=== PATIENT | female | born 1995 | race Caucasian/White ===

== ENCOUNTER 2018-09-17 19:12 | Emergency (ER) | payer OTHER ==
[2018-09-17 20:46] LABS: APPEARANCE,URINE SLIGHTLY-CLOUDY; BILIRUBIN,URINE NEGATIVE (NEGATIVE); COLOR,URINE YELLOW; GLUCOSE, URINE NEGATIVE (NEGATIVE); KETONES,URINE TRACE mg/dL (NEGATIVE); LEUKOCYTE ESTERASE,URINE SMALL (NEGATIVE); NITRITE,URINE NEGATIVE (NEGATIVE); PROTEIN,URINE NEGATIVE (NEGATIVE)
[2018-09-17 21:31] LABS: ABSOLUTE LYMPHOCYTES (AUTO) 0.7 10^3/uL (0.5-4.7); ABSOLUTE MONOCYTES (AUTO) 0.5 10^3/uL (0.1-1.4); BASOPHILS % (AUTO) 0.3 % (0-2); EOSINOPHILS % (AUTO) 1.1 % (0-6); HEMATOCRIT 37.1 % (36.0-47.0); LYMPHOCYTES % (AUTO) 17.6 % (13-45); MEAN CORPUSCULAR HEMOGLOBIN 32.5 pg (27.0-33.4); MEAN CORPUSCULAR HGB CONC 35.2 g/dL (32.0-36.0); MEAN CORPUSCULAR VOLUME 93 fl (80-97); PLATELET COUNT 152 10^3/uL (150-450); RED BLOOD COUNT 4.01 10^6/uL (3.72-5.28); RED CELL DISTRIBUTION WIDTH 13.4 % (11.5-14.0); TOTAL CELLS COUNTED % (AUTO) 100 %; WHITE BLOOD COUNT 4.2 10^3/uL (4.0-10.5)
--- NOTE | 2018-09-17 21:53 | ER Document Report ---
ED General - General Chief Complaint: Passed Out Prior to Arrival Stated Complaint: FAINTED AT WORK Time Seen by Provider: 09/17/18 21:52 Mode of Arrival: Ambulatory Information source: Patient, Relative TRAVEL OUTSIDE OF THE [place] IN LAST 30 DAYS: No - HPI Notes: Patient presents with her as a 23-year-old with history of lupus and is currently 11 weeks and 5 days comes in with report of episode of syncope at work that occurred where she had midepigastric abdominal pain and then nausea then felt lightheaded and was diaphoretic but stayed in a upright position in a chair and then had a syncopal event. The patient had no seizure activity or incontinence or tongue biting. She had another event 1 week ago. She reports some nausea associated with but has not vomited today. No constipation or diarrhea or chest pain or palpitations or headache or head injury. No unilateral motor or sensory deficit. Medications patient previously was on Plaquenil but it was discontinued. She is on as a azithioprin, hydroxyzine, Unisom, vitamins, Zofran. Patient has had a previous ultrasound showed an intrauterine . She currently denies any abdominal pain states she feels better. She admits to drinking less fluids and eating less related to nausea from the . She has had other episodes of feeling lightheaded and having syncope, commonly after a painful or stressful stimulus. - Related Data Allergies/Adverse Reactions: ibuprofen Allergy (Verified 09/17/18 19:18) Past Medical History - General Information source: Patient - Social History Smoking Status: Never Smoker Frequency of alcohol use: None Drug Abuse: None Lives with: Family Family History: None Patient has suicidal ideation: No Patient has homicidal ideation: No Renal/ Medical History: Denies: Hx Peritoneal Dialysis Review of Systems - Review of Systems -: Yes All other systems reviewed and negative Physical Exam - Vital signs Vitals: Temp Pulse Resp BP Pulse Ox 98.9 F 67 18 121/72 100 09/17/18 19:59 09/17/18 19:59 09/17/18 19:59 09/17/18 19:59 09/17/18 19:59 - Notes Notes: PHYSICAL EXAMINATION: GENERAL: Well-appearing, well-nourished and in no acute distress. HEAD: Atraumatic, normocephalic. EYES: Pupils equal round and reactive to light, extraocular movements intact, conjunctiva are normal. ENT: Nares patent, oropharynx clear without exudates. Moist mucous membranes. NECK: Normal range of motion, supple without lymphadenopathy LUNGS: Breath sounds clear to auscultation bilaterally and equal. No wheezes rales or rhonchi. HEART: Regular rate and rhythm without murmurs ABDOMEN: Soft, nontender, nondistended abdomen. No guarding, no rebound. No masses appreciated. Unable to reproduce any abdominal pain. Negative Hwang's. Female : deferred Musculoskeletal: Normal range of motion, no pitting or edema. No cyanosis. NEUROLOGICAL: Cranial nerves grossly intact. Normal speech, normal gait. Normal sensory, motor exams. No cerebellar ataxia. PSYCH: Normal mood, normal affect. SKIN: Warm, Dry, normal turgor, no rashes or lesions noted. Course - Re-evaluation Re-evalutation: 09/17/18 22:22 Patient given normal saline 1 L bolus. Orthostatics were normal on the patient. 09/18/18 00:12 Patient later complained of ear pain. She was noted to have cerumen impaction right greater than left. No evidence for mastoid tenderness. No evidence for otitis externa. The patient reportedly has been at the [facility] and had her ears irrigated and was given some drops previously for the same issue. No evidence for mastoiditis. Repeat blood sugar check was 118. No evidence for severe dehydration or suggestion for pyelonephritis or anemia or GI bleed or electrolyte imbalance or renal insufficiency or diabetes. The patient ate without difficulty while in the emergency department. No clinical suggestion for CVA or stroke. Question of vasovagal etiology. - Vital Signs Vital signs: Temp Pulse Resp BP Pulse Ox 98.9 F 70 20 122/65 100 09/17/18 19:59 09/17/18 20:51 09/17/18 23:12 09/17/18 23:12 09/17/18 23:12 - Laboratory Result Diagrams: 09/17/18 21:11 09/17/18 21:42 Laboratory results interpreted by me: 09/17/18 09/17/18 20:25 21:42 Potassium 3.5 L BUN 6 L Creatinine 0.38 L Glucose 73 L Beta HCG, Quant 92528.00 H Urine Ketones TRACE H Urine Urobilinogen 2.0 H Ur Leukocyte Esterase SMALL H Urine Ascorbic Acid 40 H - EKG Interpretation by Me EKG shows normal: Sinus rhythm Additional EKG results interpreted by me: 09/17/18 22:22 EKG as interpreted by me showed normal sinus rhythm heart rate of 74. There is no gross evidence for acute OK or ischemia noted. There was no old EKG available for comparison. Discharge - Discharge Clinical Impression: Dehydration, Hyperemesis gravidarum Syncope Qualifiers: Syncope type: vasovagal syncope Qualified Code(s): R55 - Syncope and collapse Urinary tract infection Qualifiers: Urinary tract infection type: acute cystitis Hematuria presence: without hematuria Qualified Code(s): N30.00 - Acute cystitis without hematuria Cerumen impaction Qualifiers: Laterality: right Qualified Code(s): H61.21 - Impacted cerumen, right ear Condition: Stable Disposition: HOME, SELF-CARE Instructions: Nitrofurantoin ([facility]), Urinary Tract Infection ([facility]), Dehydration ([facility]), Hyperemesis Gravidarum ([facility]), Syncopal Episode ([facility]) Additional Instructions: Drink plenty of fluids. Put Colace liquid 1 mL in right ear daily to help dissolve wax. You may take Tylenol as directed for pain. Stand up slowly. Sit down or lay down if you feel lightheaded. Prescriptions: Ondansetron [Zofran Odt 4 mg Tablet] 1 tab PO Q8HP PRN #15 tab.rapdis PRN Reason: For Nausea/Vomiting Docusate Sodium [Colace 100 mg/10 ml Oral Soln] 1 ml RT_EAR DAILY #100 ml Nitrofurantoin/Nitrofuran Mac [Macrobid 100 mg Capsule] 1 tab PO BID #14 capsule Forms: Return to Work Referrals: CLEMENTINE ALVES DO [Primary Care Provider] - 09/19/18
[2018-09-17] MEDS ORDERED: NORMAL SALINE 1000 ML 1,000 ML IV ONE (22:14)
[2018-09-17 22:20] LABS: ALANINE AMINOTRANSFERASE 18 U/L (9-52); ALBUMIN 3.8 g/dL (3.5-5.0); ALKALINE PHOSPHATASE 58 U/L (38-126); ANION GAP 10 (5-19); ASPARTATE AMINO TRANSFERASE 25 U/L (14-36); BILIRUBIN,DIRECT 0.1 mg/dL (0.0-0.4); BILIRUBIN,TOTAL 0.5 mg/dL (0.2-1.3); BLOOD UREA NITROGEN 6 mg/dL (7-20); CARBON DIOXIDE 24 mmol/L (22-30); CHLORIDE 104 mmol/L (98-107); CREATINE KINASE 31 U/L (30-135); GLUCOSE 73 mg/dL (75-110); POTASSIUM 3.5 mmol/L (3.6-5.0); SODIUM 138.4 mmol/L (137-145); TOTAL PROTEIN 7.2 g/dL (6.3-8.2)
[2018-09-17 22:32] LABS: CREATINE KINASE MB 0.28 ng/mL (<4.55)
[2018-09-17 22:33] LABS: TROPONIN I < 0.012 ng/mL
[2018-09-18] MEDS ORDERED: NITROFURANTOIN MONOHYD/M-CRYST 100 MG CAPSULE PO ONE (00:04)
[2018-09-18] MEDS ORDERED: ACETAMINOPHEN 325 MG TABLET PO ONE (00:04)
[2018-09-18] MEDS ORDERED: DOCUSATE SODIUM 100 MG CAPSULE RT_EAR ONE (00:04)
[2018-09-18 00:35] VITALS: BP 124/85
--- NOTE | 2018-09-18 07:35 | EKG REPORT ---
SEVERITY:- NORMAL ECG - SINUS RHYTHM : Confirmed by: Aden Bahena MD 18-Sep-2018 07:34:43
== END 2018-09-18 00:36 | disposition home or self-care (01) ==
LOC: ER 19:12
DX: O23.11 Infections of bladder in pregnancy, first trimester (principal); N30.00 Acute cystitis without hematuria; O21.0 Mild hyperemesis gravidarum; O26.891 Other specified pregnancy related conditions, first trimester; R55 Syncope and collapse; E86.0 Dehydration; H61.21 Impacted cerumen, right ear; H92.03 Otalgia, bilateral; Z3A.11 11 weeks gestation of pregnancy; Z79.899 Other long term (current) drug therapy
CPT/HCPCS: 93005; 99284; 96360; 36415; 82553; 82962; 82550; 84702; 83690; 85025; 80053; 81001; 84484; 93010; J7030; J8499

== ENCOUNTER 2018-10-05 15:14 | Emergency (ER) | payer OTHER ==
--- NOTE | 2018-10-05 15:34 | ER Document Report ---
ED Medical Screen (RME) - General Chief Complaint: Abdominal Pain Stated Complaint: ABDOMINAL PAIN Time Seen by Provider: 10/05/18 15:28 Notes: 23-year-old female patient is 13 weeks . By history another 1 of her children fell onto her abdomen pain. When I walked into the room, she was slumped over trying to fall out of the side of the wheelchair. The nurse was wheeling her out the door at that time to the main ED due to this sudden change in mental status. Quick review of records shows the patient was here earlier this month for a syncopal episode. She does have lupus. I have greeted and performed a rapid initial assessment of this patient. A comprehensive ED assessment and evaluation of the patient, analysis of test results and completion of the medical decision making process will be conducted by additional ED providers. TRAVEL OUTSIDE OF THE [place] IN LAST 30 DAYS: No - Related Data Allergies/Adverse Reactions: ibuprofen Allergy (Verified 09/17/18 19:18) Past Medical History Renal/ Medical History: Denies: Hx Peritoneal Dialysis Physical Exam - Vital signs Vitals: Temp Pulse Resp BP Pulse Ox 98.5 F 87 24 H 118/66 100 10/05/18 15:23 10/05/18 15:23 10/05/18 15:23 10/05/18 15:23 10/05/18 15:23 Course - Vital Signs Vital signs: Temp Pulse Resp BP Pulse Ox 98.5 F 87 24 H 118/66 100 10/05/18 15:23 10/05/18 15:23 10/05/18 15:23 10/05/18 15:23 10/05/18 15:23 Doctor's Discharge - Discharge Referrals: CLEMENTINE ALVES DO [Primary Care Provider] - Follow up as needed
[2018-10-05] MEDS ORDERED: ACETAMINOPHEN 325 MG TABLET PO ONE (15:48)
--- NOTE | 2018-10-05 15:57 | ER Document Report ---
ED General - General Chief Complaint: Abdominal Pain Stated Complaint: ABDOMINAL PAIN Time Seen by Provider: 10/05/18 15:28 TRAVEL OUTSIDE OF THE [place] IN LAST 30 DAYS: No - HPI Notes: Patient is a 23-year-old female approximately 13 weeks who presents to the ED complaining of lower abdomen/pelvic pain status post injury prior to arrival. Patient states that a 2-year-old child who was skinny and taller jumped onto her stomach. ?weight. Patient states that she has had sharp pain since then that does not radiate. She has otherwise been eating and drinking without any difficulty. She had been urinating normally. She has not noticed any vaginal discharge, odor, or bleeding. No other concerns or complaints at this time. Denies any headache, fever, head injury, neck pain, changes in vision/speech/mentation/hearing, URI, sore throat, chest pain, palpitations, syncope, cough, shortness of breath, wheeze, dyspnea, nausea/ vomiting/diarrhea, urinary retention, dysuria, hematuria, back pain, loss of control of bowel or bladder, numbness/tingling, saddle anesthesia, muscle paralysis/weakness, or rash. - Related Data Allergies/Adverse Reactions: ibuprofen Allergy (Verified 09/17/18 19:18) Past Medical History - Social History Smoking Status: Unknown if Ever Smoked Family History: None Renal/ Medical History: Denies: Hx Peritoneal Dialysis Review of Systems - Review of Systems -: Yes All other systems reviewed and negative Physical Exam - Vital signs Vitals: Temp Pulse Resp BP Pulse Ox 98.5 F 87 24 H 118/66 100 10/05/18 15:23 10/05/18 15:23 10/05/18 15:23 10/05/18 15:23 10/05/18 15:23 - Notes Notes: PHYSICAL EXAMINATION: GENERAL: Well-appearing, well-nourished and in no acute resp distress. A&Ox4. Answers questions appropriately. Pt is tearful during exam. HEAD: Atraumatic, normocephalic. EYES: Pupils equal round and reactive to light, extraocular movements intact, sclera anicteric, conjunctiva are normal. ENT: Nares patent and without discharge. oropharynx clear without exudates. No tonsilar hypertrophy or erythema. Moist mucous membranes. NECK: Normal range of motion, supple without lymphadenopathy LUNGS: Breath sounds clear to auscultation bilaterally and equal. No wheezes rales or rhonchi. HEART: Regular rate and rhythm without murmurs, rubs, gallops. ABDOMEN: Soft, nondistended abdomen. No guarding, no rebound. No masses appreciated. Normal bowel sounds present. No CVA tenderness bilaterally. + tenderness to palp lower abd b/l. No ecchymosis or signs of trauma. Pt does seem to be a bit more tender than I would expect, even with light palpation. Musculoskeletal: FROM to passive/active. Strength 5+/5. Extremities: No cyanosis, clubbing, or edema b/l. Peripheral pulses 2+. Capillary refill less than 3 seconds. NEUROLOGICAL: Normal speech, normal gait. Normal sensory, motor exams PSYCH: Normal mood, normal affect. SKIN: Warm, Dry, normal turgor, no rashes or lesions noted. Course - Re-evaluation Re-evalutation: 10/05/18 17:[address] De La Paz who is in agreement with dispo/plan: Patient is an afebrile, well-hydrated 23-year-old female who presents to the ED for lower pelvic pain status post injury which I suspect to be abdominal wall contusion. Vitals are acceptable without any significant tachycardia, tachypnea , or hypoxia. PE is otherwise unremarkable. Patient did not have any ecchymosis to her abdomen and upon discharge was nowhere near as tender as she was. Patient states that her symptoms have greatly improved and she is feeling much better. CBC, CMP, lipase, urinalysis was unremarkable. Transvaginal ultrasound showed a living 12-week 4-day intrauterine without any free fluid or abnormalities. Patient is nontoxic-appearing and is tolerating p.o. without difficulty. Tylenol given PO. No further labs or imaging warranted at this time. Low suspicion/risk for acute appendicitis, bowel obstruction, acute cholecystitis, acute cholangitis, perforated diverticulitis, incarcerated hernia, pancreatitis, perforated ulcer, peritonitis, sepsis, pelvic inflammatory disease, ectopic , tubo-ovarian abscess, ovarian torsion, bleeding, or other systemic emergent condition at this time. Patient is aware that her condition can change from initial presentation and she needs to monitor symptoms closely and seek medical attention if any acute changes. Conservative measures otherwise for symptoms. Recheck with your PCM/PACK OPERATOR in 3 -5 days. Return to the ED with any worsening/concerning symptoms otherwise as reviewed discharge. Patient is in agreement. - Vital Signs Vital signs: Temp Pulse Resp BP Pulse Ox 97.6 F 87 22 H 97/64 L 100 10/05/18 18:33 10/05/18 15:23 10/05/18 18:16 10/05/18 18:16 10/05/18 18:16 - Laboratory Result Diagrams: 10/05/18 15:35 10/05/18 15:35 Laboratory results interpreted by me: 10/05/18 10/05/18 10/05/18 15:35 15:35 16:00 WBC 3.6 L Monocytes % 14.4 H Creatinine 0.45 L Urine Ascorbic Acid 20 H Discharge - Discharge Clinical Impression: Lower abdominal pain Condition: Stable Disposition: HOME, SELF-CARE Additional Instructions: Maintain fluid intake Tylenol as needed F/u with your PCM/OBGYN in 3-5 days for a recheck Return to the ED with any development of FRANKS/fever, trouble with vision, eye redness, worsening pain, urethral discharge, urinary retention, blood in the urine, flank pain, abdominal pain, n/v, Chest Pain, shortness of breath, joint pains, trouble breathing, vaginal odor/discharge/bleeding, development of bruising to the skin, or any other worsening/concerning symptoms as needed otherwise. Referrals: CLEMENTINE ALVES DO [Primary Care Provider] - 10/08/18
[2018-10-05 16:19] LABS: ABSOLUTE LYMPHOCYTES (AUTO) 0.5 10^3/uL (0.5-4.7); ABSOLUTE MONOCYTES (AUTO) 0.5 10^3/uL (0.1-1.4); ABSOLUTE NEUT (AUTO) 2.5 10^3/uL (1.7-8.2); BASOPHILS % (AUTO) 0.2 % (0-2); EOSINOPHILS % (AUTO) 0.6 % (0-6); HEMATOCRIT 37.1 % (36.0-47.0); LYMPHOCYTES % (AUTO) 14.7 % (13-45); MEAN CORPUSCULAR HEMOGLOBIN 32.6 pg (27.0-33.4); MEAN CORPUSCULAR VOLUME 93 fl (80-97); MONOCYTES % (AUTO) 14.4 % (3-13); PLATELET COUNT 181 10^3/uL (150-450); RED BLOOD COUNT 3.98 10^6/uL (3.72-5.28); RED CELL DISTRIBUTION WIDTH 12.6 % (11.5-14.0); SEGMENTED NEUTROPHILS % (AUTO) 70.1 % (42-78); TOTAL CELLS COUNTED % (AUTO) 100 %; WHITE BLOOD COUNT 3.6 10^3/uL (4.0-10.5)
[2018-10-05 16:31] LABS: AMORPHOUS SEDIMENT,URINE TRACE /HPF; APPEARANCE,URINE SLIGHTLY-CLOUDY; BILIRUBIN,URINE NEGATIVE (NEGATIVE); COLOR,URINE YELLOW; GLUCOSE, URINE NEGATIVE (NEGATIVE); KETONES,URINE NEGATIVE (NEGATIVE); LEUKOCYTE ESTERASE,URINE NEGATIVE (NEGATIVE); NITRITE,URINE NEGATIVE (NEGATIVE); PROTEIN,URINE NEGATIVE (NEGATIVE); URINE SPECIFIC GRAVITY 1.016; UROBILINOGEN,URINE NEGATIVE mg/dL (<2.0)
[2018-10-05 16:38] LABS: ALANINE AMINOTRANSFERASE 16 U/L (9-52); ALKALINE PHOSPHATASE 56 U/L (38-126); ANION GAP 11 (5-19); ASPARTATE AMINO TRANSFERASE 27 U/L (14-36); BILIRUBIN,DIRECT 0.2 mg/dL (0.0-0.4); BILIRUBIN,TOTAL 0.4 mg/dL (0.2-1.3); BLOOD UREA NITROGEN 10 mg/dL (7-20); CALCIUM 9.2 mg/dL (8.4-10.2); CARBON DIOXIDE 25 mmol/L (22-30); CHLORIDE 105 mmol/L (98-107); GLUCOSE 81 mg/dL (75-110); LIPASE 92.8 U/L (23-300); POTASSIUM 3.9 mmol/L (3.6-5.0); TOTAL PROTEIN 7.7 g/dL (6.3-8.2)
--- NOTE | 2018-10-05 16:41 | RADIOLOGY REPORT (SQ) ---
EXAM DESCRIPTION: U/S 1TRIMESTER/1GEST W/DOPPLER COMPLETED DATE/TIME: 10/05/2018 4:26 pm REASON FOR STUDY: lower pelvic pain s/p child jumping on her stom. COMPARISON: None. TECHNIQUE: Transabdominal static and realtime grayscale images acquired of the pelvis. Additional se lected spectral and color Doppler images recorded. All images stored on PACs. LIMITATIONS: None. FINDINGS: FETUS: Single Living intrauterine . ULTRASOUND EGA: 12 weeks 4 days. ULTRASOUND JACEK: 04/15/2019. EFW: Not applicable less than 20 weeks. CRL: 6.04 cm FHR: 155 beats per minute. AMNIOTIC FLUID: Adequate amount. PLACENTA: Anterior. UTERUS: No masses. No anomalies. CERVICAL LENGTH: 3.3 cm Closed. RIGHT ADNEXA: Right ovary measures 2.5 x 1.9 x 1.6 cm with Doppler flow. No adnexal masses. LEFT ADNEXA: Left ovary nonvisualized. No adnexal masses.FREE FLUID: None. OTHER: No other significant finding. IMPRESSION: LIVING INTRAUTERINE . EGA 12 weeks 4 days. Trimester of : First - 0 to 13 weeks. TECHNICAL DOCUMENTATION: JOB ID: [id number] 2010 [employer]- All Rights Reserved rev-03/30 Reading location - IP/workstation name: [email or web address]
[2018-10-05 18:33] VITALS: BP 97/64
== END 2018-10-05 18:33 | disposition home or self-care (01) ==
LOC: ER 15:14
DX: O26.891 Other specified pregnancy related conditions, first trimester (principal); R10.30 Lower abdominal pain, unspecified; Z3A.13 13 weeks gestation of pregnancy
CPT/HCPCS: 36415; 76801; 80053; 81001; 83690; 85025; 93976; 99284